=== PATIENT | male | born 1985 | race Hispanic/Latino ===

== ENCOUNTER 2023-03-24 08:18 | Inpatient (IN) | payer SELFPAY, OTHER ==
[2023-03-24 08:51] LABS: #Eosinphils 0.1 thou/uL (0.0-0.7); #Monocytes 0.6 thou/uL (0.11-0.59); #Neutrophils 10.3 thou/uL (1.40-6.50); %Basophils 0.2 % (0.0-1.0); %Eosinophils 0.5 % (0.0-10.0); %Lymphocytes 20.4 % (21.0-51.0); %Monocytes 4.5 % (0.0-10.0); %Neutrophils 73.1 % (42.0-75.0); Hematocrit 43.6 % (42.0-52.0); Mean Corpuscular HGB CONC 32.1 g/dL (32.0-36.0); Mean Corpuscular Hemoglobin 27.7 pg (27.0-31.0); Mean Corpuscular Volume 86.3 fl (78.0-98.0); Mean Platelet Volume 12.9 fL (7.4-10.4); Platelet Count 220 10x3/uL (130-400); RBC Distribution Width 12.6 % (11.5-14.5); Red Blood Cell (RBC) Count 5.05 mill/uL (4.70-6.10); White Blood Cell (WBC) Count 14.1 10x3/uL (4.8-10.8)
[2023-03-24] MEDS ORDERED: TETANUS, DIPHTHERIA TOX,ADULT (TDVAX) 0.5 ML VIAL IM ONE (09:00)
[2023-03-24] MEDS ORDERED: Bacitracin 1 PK ONE (09:01)
[2023-03-24] MEDS ORDERED: Lidocaine 1% w/Epinephrine 1:100K 20 ML VIAL ONE (09:02)
[2023-03-24] MEDS ORDERED: Sodium Chloride 0.9% 100 ML ONE (09:02)
[2023-03-24] MEDS ORDERED: CEFAZOLIN 2 GM VIAL ONE (09:02)
[2023-03-24] MEDS ORDERED: Boostrix 0.5 ML (Tdap) VIAL (>/=7 yrs of age) ONE (09:02)
[2023-03-24] MEDS ORDERED: fentaNYL 50 mcg/mL 1 mL Vial ONE (09:05)
[2023-03-24 09:08] LABS: INR-International Normal Ratio 1.1; PTT 27.9 sec (22.9-36.1); Prothrombin Time 14.3 sec (12.0-14.7)
[2023-03-24 09:12] LABS: ALT (SGPT) 274 U/L (8-55); AST (SGOT) 262 U/L (5-34); Albumin 3.7 g/dL (3.5-5.0); Alcohol Less than 10.0 mg/dL (Less than 10); Alkaline Phosphatase 101 U/L (40-110); Anion Gap 14 mmol/L (10-20); BUN (Urea Nitrogen) 12 mg/dL (8.9-20.6); Bilirubin, Total 0.3 mg/dL (0.2-1.2); Calc. Creatinine Clearance 0 mL/min (70-130); Calcium 8.1 mg/dL (7.8-10.44); Carbon Dioxide 19 mmol/L (22-29); Chloride 110 mmol/L (98-107); Estimated GFR 115; Glucose 197 mg/dL (70-105); Protein, Total 6.7 g/dL (6.0-8.3); Sodium 139 mmol/L (136-145)
[2023-03-24] MEDS ORDERED: Iopamidol-370 76% 500 ML MDV (1 ML CHARGE) ONE (09:14)
[2023-03-24] MEDS ORDERED: Ondansetron ODT 4 MG TAB PO PRN (10:13)
[2023-03-24] MEDS ORDERED: Dextrose 5% in Water 1,000 ML IV PRN (10:13)
[2023-03-24] MEDS ORDERED: Ipratropium/Albuterol 3 ML NEB NEB PRN (10:13)
[2023-03-24] MEDS ORDERED: Ondansetron PF 4 MG/2 ML Vial IVP PRN (10:13)
[2023-03-24] MEDS ORDERED: Glucagon 1 MG/ML KIT IM PRN (10:13)
[2023-03-24] MEDS ORDERED: Dextrose 50% Abboject 50 ML SYRINGE SLOW IVP PRN (10:13)
[2023-03-24] MEDS ORDERED: Rib Fracture Protocol PO SCH (10:15)
[2023-03-24] MEDS ORDERED: Lidocaine 1% PF 5 ML VIAL ONE (10:55)
[2023-03-24] MEDS ORDERED: Morphine 4 MG/ML VIAL ONE (11:25)
[2023-03-24] MEDS ORDERED: Cyclobenzaprine 10 MG TAB PO PRN (12:01)
[2023-03-24 12:16] LABS: Critical Call Chem-Lactate NUR.PA @1216; Lactic Acid 6.4 mmol/L (0.5-2.2)
[2023-03-24 13:37] VITALS: BMI 32.5
[2023-03-24] MEDS ORDERED: Acetaminophen 500 MG TAB ONE ×2 (13:51→18:41)
[2023-03-24] MEDS ORDERED: traMADol HCl 50 MG TAB ONE ×2 (13:52→18:41)
[2023-03-24] MEDS ORDERED: Gabapentin 300 MG CAP ONE ×2 (13:52→21:46)
[2023-03-24] MEDS ORDERED: Ibuprofen 800 MG TAB ONE ×2 (13:52→21:46)
[2023-03-24] MEDS: Acetaminophen 500 MG TAB PO SCH ×2 (14:00→18:47)
[2023-03-24] MEDS: traMADol HCl 50 MG TAB PO SCH ×2 (14:01→18:48)
[2023-03-24] MEDS: Ibuprofen 200 MG TAB PO SCH ×2 (14:02→21:48)
[2023-03-24] MEDS: Gabapentin 300 MG CAP PO SCH ×2 (14:57→21:47)
[2023-03-25] MEDS: Acetaminophen 500 MG TAB PO SCH ×5 (00:03→23:32)
[2023-03-25] MEDS: traMADol HCl 50 MG TAB PO SCH ×5 (00:04→23:32)
[2023-03-25] MEDS: Ibuprofen 200 MG TAB PO SCH (03:36)
[2023-03-25 05:45] LABS: #Neutrophils 9.9 thou/uL (1.40-6.50); %Basophils 0.1 % (0.0-1.0); %Eosinophils 0.1 % (0.0-10.0); %Lymphocytes 11.7 % (21.0-51.0); %Monocytes 8.3 % (0.0-10.0); %Neutrophils 79.4 % (42.0-75.0); Hematocrit 38.2 % (42.0-52.0); Hemoglobin 12.3 g/dL (14.0-18.0); Mean Corpuscular HGB CONC 32.2 g/dL (32.0-36.0); Mean Corpuscular Hemoglobin 27.6 pg (27.0-31.0); Mean Corpuscular Volume 85.8 fl (78.0-98.0); Platelet Count 188 10x3/uL (130-400); RBC Distribution Width 12.9 % (11.5-14.5); Red Blood Cell (RBC) Count 4.45 mill/uL (4.70-6.10); White Blood Cell (WBC) Count 12.4 10x3/uL (4.8-10.8)
[2023-03-25 06:24] LABS: ALT (SGPT) 185 U/L (8-55); AST (SGOT) 115 U/L (5-34); Albumin 3.8 g/dL (3.5-5.0); Alkaline Phosphatase 80 U/L (40-110); Anion Gap 10 mmol/L (10-20); BUN (Urea Nitrogen) 18 mg/dL (8.9-20.6); Bilirubin, Total 0.6 mg/dL (0.2-1.2); Calc. Creatinine Clearance 147 mL/min (70-130); Calcium 8.5 mg/dL (7.8-10.44); Carbon Dioxide 23 mmol/L (22-29); Chloride 108 mmol/L (98-107); Estimated GFR 117; Globulin 2.7 g/dL (2.4-3.5); Glucose 134 mg/dL (70-105); Potassium 3.9 mmol/L (3.5-5.1); Protein, Total 6.5 g/dL (6.0-8.3); Sodium 137 mmol/L (136-145)
[2023-03-25] MEDS: Gabapentin 300 MG CAP PO SCH ×3 (08:41→20:10)
[2023-03-25] MEDS: Senokot S 8.6-50 MG TAB PO SCH ×2 (08:41→20:10)
[2023-03-25] MEDS: HYDROcodone/Acetaminophen 7.5/325 mg Tablet PO PRN ×2 (11:35→20:10)
[2023-03-25 14:35] VITALS: BP 121/80
[2023-03-25] MEDS ORDERED: Sodium Chloride 0.65% Nasal 44 ML BOT EA NARE PRN (19:00)
[2023-03-26] MEDS ORDERED: Polyethylene Glycol 3350 17 GM Packet PO PRN (03:39)
[2023-03-26 06:00] LABS: #Eosinphils 0.1 thou/uL (0.0-0.7); #Monocytes 0.9 thou/uL (0.11-0.59); #Neutrophils 7.5 thou/uL (1.40-6.50); %Basophils 0.3 % (0.0-1.0); %Eosinophils 0.6 % (0.0-10.0); %Lymphocytes 17.9 % (21.0-51.0); %Monocytes 8.7 % (0.0-10.0); %Neutrophils 72.1 % (42.0-75.0); Hematocrit 38.3 % (42.0-52.0); Hemoglobin 12.5 g/dL (14.0-18.0); Mean Corpuscular HGB CONC 32.6 g/dL (32.0-36.0); Mean Corpuscular Volume 85.7 fl (78.0-98.0); Mean Platelet Volume 12.8 fL (7.4-10.4); Platelet Count 170 10x3/uL (130-400); RBC Distribution Width 12.7 % (11.5-14.5); Red Blood Cell (RBC) Count 4.47 mill/uL (4.70-6.10); White Blood Cell (WBC) Count 10.3 10x3/uL (4.8-10.8)
[2023-03-26 06:06] LABS: Hemoglobin A1c 6.5 % (4.0-6.0)
[2023-03-26] MEDS: Acetaminophen 500 MG TAB PO SCH ×3 (06:12→17:42)
[2023-03-26] MEDS: traMADol HCl 50 MG TAB PO SCH ×3 (06:13→17:42)
[2023-03-26 06:25] LABS: Anion Gap 13 mmol/L (10-20); BUN (Urea Nitrogen) 13 mg/dL (8.9-20.6); Calc. Creatinine Clearance 141 mL/min (70-130); Calcium 8.6 mg/dL (7.8-10.44); Carbon Dioxide 26 mmol/L (22-29); Chloride 104 mmol/L (98-107); Estimated GFR 116; Glucose 107 mg/dL (70-105); Potassium 3.9 mmol/L (3.5-5.1); Sodium 139 mmol/L (136-145)
[2023-03-26] MEDS: HYDROcodone/Acetaminophen 7.5/325 mg Tablet PO PRN ×2 (08:02→19:56)
[2023-03-26] MEDS: Senokot S 8.6-50 MG TAB PO SCH (08:03)
[2023-03-26] MEDS: Gabapentin 300 MG CAP PO SCH ×2 (08:03→15:37)
[2023-03-26 16:07] VITALS: TEMP 97.7
[2023-03-27] MEDS ORDERED: FLU VACC QS2023-24(6MOS UP)/PF 60 MCG/0.5 ML SYRINGE IM ONE (20:45)
== END 2023-03-26 20:35 | disposition home or self-care (01) | DRG 964 ==
LOC: ERS 08:18 → ERHOLD 10:16 → IMCU/EMU 22:58
PROVIDERS: ADMIT Specialist; ATTEND Specialist
DX: S06.5XAA Traumatic subdural hemorrhage with loss of consciousness status unknown, initial encounter (principal); S27.1XXA Traumatic hemothorax, initial encounter; S22.42XA Multiple fractures of ribs, left side, initial encounter for closed fracture; S27.321A Contusion of lung, unilateral, initial encounter
CPT/HCPCS: 12011; 26770; 36415; 36416; 70450; 70486; 71045; 71260; 72125; 74177; 80048; 80053; 80307; 83036; 83605; 85025; 85610; 85730; 86850; 86900; 86901; 90471; 90715; 93005; 96365; 96374; 96375; G0390; J2270; J3010; J3490; Q9967